=== PATIENT | male | born 1990 | race Caucasian/White ===

== ENCOUNTER 2016-06-23 15:01 | Emergency (ER) | payer OTHER ==
[~2016-06-23] VITALS: Ht 193 cm; Wt 134.2 kg
[~2016-06-23 15:01] MED LIST: NORTRIPTYLINE H10 MG PO
[2016-06-23 15:09] VITALS: BP 127/85
[2016-06-23] MEDS ORDERED: KEFLEX500 MG PO (16:41)
== END 2016-06-23 16:52 | disposition home or self-care (01) ==
LOC: EME 15:01
DX: S91.342A Puncture wound with foreign body, left foot, initial encounter (principal); W22.8XXA Striking against or struck by other objects, initial encounter; Y93.01 Activity, walking, marching and hiking; Z23 Encounter for immunization
CPT/HCPCS: 73630; 99281; 99284